=== PATIENT | female | born 1990 | race Caucasian/White ===

== ENCOUNTER 2018-11-03 21:33 | Emergency (ER) | payer OTHER ==
[~2018-11-03] VITALS: Ht 170.2 cm; Wt 59.4 kg
[2018-11-03 22:09] LABS: BASOPHILS 0.1 % (0.0-2.0); EOSINOPHILS 0.6 % (0.0-3.0); HEMATOCRIT 46.9 % (37.0-47.0); HEMOGLOBIN 15.9 gm/dL (12.0-15.0); LYMPHOCYTES 7.1 % (24.0-44.0); MCH 29.9 pg (26.0-34.0); MCV 87.9 fL (80.0-100.0); MONOCYTES 4.9 % (1.0-8.0); PLATELET COUNT 231 thou/uL (150-400); POLYS 87.3 % (36.0-66.0); RBC 5.34 mil/uL (4.20-5.00); RDW 12.7 % (10.5-14.5); WBC 13.7 thou/uL (4.0-11.0)
[2018-11-03 22:14] LABS: CALCIUM 9.1 mg/dL (8.5-10.1); POTASSIUM 3.7 mmol/L (3.5-5.1)
[2018-11-03 22:20] LABS: ALBUMIN 4.2 g/dL (3.4-5.0); TOTAL BILIRUBIN 0.7 mg/dL (<0.1-1.0); TOTAL PROTEIN 7.7 g/dL (6.4-8.2)
[2018-11-03] MEDS ORDERED: LINZESS72 MCG PO (22:24)
[2018-11-03] MEDS ORDERED: ATIVAN0.5 MG PO (22:28)
[2018-11-03] MEDS ORDERED: ZOFRAN ODT4 MG DISSOLVE (22:28)
[2018-11-03 23:29] LABS: URINE BILIRUBIN NEGATIVE (Negative); URINE BLOOD 3+ (Negative); URINE CLARITY CLEAR; URINE COLOR YELLOW; URINE GLUCOSE-RANDOM* NEGATIVE (Negative); URINE KETONES NEGATIVE (Negative); URINE LEUKOCYTES-REFLEX NEGATIVE (Negative); URINE NITRITE-REFLEX NEGATIVE (Negative); URINE PROTEIN (DIPSTICK) NEGATIVE (Negative); URINE SPECIFIC GRAVITY >= 1.030 (1.005-1.035); URINE UROBILINOGEN 0.2 E.U./dl (0.2-1.0)
[2018-11-03 23:45] LABS: SQUAMOUS 4-10 Moderate /LPF (0-3); URINE WBC-REFLEX 0-5 Rare /HPF (0-5)
[2018-11-03 23:46] LABS: CASTS None Seen /LPF (None Seen); CRYSTALS None Seen /LPF (None Seen); MUCUS 4-6 Moderate strn/LPF (None Seen); URINE RBC 3-10 Few /HPF (0-2)
[2018-11-04 00:16] VITALS: BP 102/58
--- NOTE | 2018-11-04 16:38 | EKG ---
[address] [place] [address] ELECTROCARDIOGRAM REPORT Name: SUSU KHOURY Room #: DEP Odin#: [id number] ������������������ Admission: 11/03/18 ������������������ Attend Phys: Discharge: 11/04/18 ������������������ Date of : 89 Report #: [id number] ����������������������������������������������������������������� [id number] THIS REPORT FOR: //name// [facility] ED Test Date: 2018-11-03 Test Time: 21:52:41 Pat Name: SUSU KHOURY Department: Room: Gender: F Director Mission: : 1990 Requested By: Order Number: [id number] MD: Elio Villasenor Measurements Intervals [place] Rate: 129 P: 69 WI: 143 QRS: -90 QRSD: 88 T: 86 QT: 301 QTc: 441 Interpretive Statements Sinus tachycardia Left anterior fascicular block Motion artifact No previous ECG available for comparison Electronically Signed On 11-04-2018 16:38:34 [employer] by Elio Villasenor [email or web address] ��������������������������������������������� <ELECTRONICALLY SIGNED> ���������������������������������������� By: Elio Villasenor MD ��������������������������������������������� 11/04/18 [id number] [id number] Elio Villasenor MD /[email or web address]
== END 2018-11-04 00:17 | disposition home or self-care (01) ==
LOC: ER 21:33
PROVIDERS: Nurse Practitioner Family
DX: R11.2 Nausea with vomiting, unspecified (principal); F45.8 Other somatoform disorders; K58.9 Irritable bowel syndrome, unspecified; Z88.8 Allergy status to other drugs, medicaments and biological substances; Z88.2 Allergy status to sulfonamides